=== PATIENT | female | born 2000 | race Caucasian/White ===

== ENCOUNTER 2022-03-04 17:59 | Emergency (ER) | payer SELFPAY ==
[~2022-03-04] VITALS: Ht 175.3 cm; Wt 81.8 kg
[2022-03-04 18:05] VITALS: TEMP 97.7
[2022-03-04 18:53] LABS: BASO # 0.1 K/mm3 (0.0-0.2); BASO % 0.6 % (0.0-2.0); EOS % 0.3 % (0.0-4.0); GRAN # 5.5 K/mm3 (1.4-6.5); GRAN % 68.7 % (42.2-75.2); HEMOGLOBIN 11.5 g/dl (12.0-15.0); LYMPH # 1.8 K/mm3 (1.2-3.4); MEAN CELL VOLUME 91 fl (80.0-95.0); MEAN CORPUSCULAR HEMOGLOBIN 31 pg (26-32); MEAN CORPUSCULAR HGB CONC 34 g/dl (33.0-37.0); MEAN PLATELET VOLUME 9.5 fl (7.4-10.4); MONO # 0.7 K/mm3 (0.1-0.6); MONO % 8.1 % (1.7-9.3); PLATELET COUNT 262 K/mm3 (130-400); RED BLOOD COUNT 3.67 M/mm3 (4.10-5.30); REDCELL DISTRIBUTION WIDTH-CV 12.9 % (11.5-14.5)
[2022-03-04 18:54] LABS: HEMATOCRIT 33.5 % (35.0-45.0)
[2022-03-04 19:04] LABS: BILIRUBIN,TOTAL 0.5 mg/dL (0.2-1.2); CALCIUM 8.1 mg/dL (8.4-10.2); CREATININE, serum 0.8 mg/dL (0.57-1.11); POTASSIUM 3.2 mmol/L (3.5-4.5)
[2022-03-05 00:56] VITALS: BP 113/97; PULSE 75
== END 2022-03-05 01:00 | disposition home or self-care (01) ==
LOC: COL.ER 17:59
PROVIDERS: Nurse Practitioner
DX: F10.229 Alcohol dependence with intoxication, unspecified (principal); Y90.8 Blood alcohol level of 240 mg/100 ml or more

== ENCOUNTER 2022-04-21 18:57 | Emergency (ER) | payer SELFPAY ==
[~2022-04-21] VITALS: Ht 180.3 cm; Wt 86.4 kg
[2022-04-21 19:11] VITALS: TEMP 98.4
[2022-04-21 22:35] VITALS: BP 118/72; PULSE 72
== END 2022-04-21 22:35 | disposition home or self-care (01) ==
LOC: COL.ER
DX: S70.11XA Contusion of right thigh, initial encounter (principal); S80.812A Abrasion, left lower leg, initial encounter; S80.811A Abrasion, right lower leg, initial encounter; S40.812A Abrasion of left upper arm, initial encounter; S40.811A Abrasion of right upper arm, initial encounter; S09.90XA Unspecified injury of head, initial encounter; V89.2XXA Person injured in unspecified motor-vehicle accident, traffic, initial encounter; Y92.410 Unspecified street and highway as the place of occurrence of the external cause